=== PATIENT | female | born 1980 | race Two or more races ===

== ENCOUNTER 2025-03-28 16:57 | Emergency (ER) | payer BC ==
[~2025-03-28] VITALS: Ht 157.5 cm; Wt 81.8 kg
[2025-03-28 17:01] VITALS: TEMP 98.2
[2025-03-28 17:17] LABS: COVID AG,FIA SOURCE NASAL SWAB
[2025-03-28 17:38] LABS: INFLUENZA TYPE A NEGATIVE FOR TYPE A (NEGATIVE); INFLUENZA TYPE B NEGATIVE FOR TYPE B (NEGATIVE); SARS-COV2 (COVID) ANTIGEN,FIA Negative (Negative)
[2025-03-28 18:10] LABS: PLATELET COUNT (AUTO) 337 K/uL (150-450); RED BLOOD CELL COUNT(AUTO) 5.31 MIL/uL (4.00-5.20); RED CELL DISTRIBUTION WIDTH 15.9 % (11.5-14.5); WHITE BLOOD COUNT (AUTO) 9.0 K/uL (4.5-11.0)
[2025-03-28 18:19] LABS: CALCIUM, TOTAL 8.6 mg/dL (8.8-10.5); CREATININE 0.58 mg/dL (0.60-1.30); GLOMERULAR FILTR. RATE CALC > 60 mL/min (>60); GLUCOSE,RANDOM 148 mg/dL (70-110); SODIUM SERUM 138 mmol/L (136-145); UREA NITROGEN, BLOOD 10 mg/dL (7-18)
[2025-03-28 18:28] LABS: TROPONIN I-HIGH SENSITIVITY 4 ng/L (<51)
[2025-03-28 18:39] VITALS: PULSE 105; RESP 18; O2SAT 98
[2025-03-28] MEDS: ALBUTEROL SULFATE 2.5 MG/0.5 ML NEB SOLUTION NEB ONE (18:39)
[2025-03-28] MEDS: IPRATROPIUM BROMIDE 0.5 MG/2.5 ML NEB SOLUTION NEB ONE (18:40)
[2025-03-28 18:54] VITALS: PULSE 104; RESP 18; O2SAT 98
[2025-03-28 19:43] VITALS: BP 115/74; PULSE 104; RESP 17; O2SAT 99
[2025-03-28] MEDS ORDERED: ALBU18HF12 IH (20:36)
[2025-03-28] MEDS ORDERED: AZIT250T9 PO (20:36)
[2025-03-28] MEDS ORDERED: PRED-554 PO (20:36)
== END 2025-03-28 20:56 | disposition home or self-care (01) ==
LOC: EMS 16:57
DX: J18.0 Bronchopneumonia, unspecified organism (principal); J45.909 Unspecified asthma, uncomplicated; Z11.59 Encounter for screening for other viral diseases; Z20.822 Contact with and (suspected) exposure to COVID-19
CPT/HCPCS: 99285; 71045; 87426; 80048; 82962; 83880; 84484; 85025; 87804; 36415; 94640; 93005; J7512; J7613